=== PATIENT | female | born 1995 | race Caucasian/White ===

== ENCOUNTER 2020-08-26 22:31 | Emergency (ER) | payer BC ==
[~2020-08-26] VITALS: Ht 167.6 cm; Wt 72.5 kg
[2020-08-26] MEDS ORDERED: PROZAC20 M1 PO (22:47)
[2020-08-26 23:14] LABS: HEMOGLOBIN 12.1 g/dl (12.0-16.0); IMMATURE GRANULOCYTES 0.2 % (0.0-5.0); MEAN CELL VOLUME 92.3 fL CALC (80.0-100.0); MEAN CORPUSCULAR HGB 30.2 pG CALC (26.0-32.0); MEAN CORPUSCULAR HGB CONC 32.7 g/dL CAL (32.0-36.0); NEUT# 5.5 thou/uL (2.00-7.15); RED BLOOD COUNT 4.01 mill/uL (4.20-5.60); RED CELL DISTRI WIDTH 12.1 % (11.5-15.5)
[2020-08-27 00:15] VITALS: BP 118/73
== END 2020-08-27 00:18 | disposition home or self-care (01) | DRG 605 ==
LOC: ED 22:31
PROVIDERS: Family Medicine
PROC: 0HQFXZZ Repair Right Hand Skin, External Approach (ICD-10-PCS; principal; 2020-08-26)
DX: S61.411A Laceration without foreign body of right hand, initial encounter (principal); J20.8 Acute bronchitis due to other specified organisms; W26.9XXA Contact with unspecified sharp object(s), initial encounter; Y93.E9 Activity, other interior property and clothing maintenance; Y92.009 Unspecified place in unspecified non-institutional (private) residence as the place of occurrence of the external cause; Z20.822 Contact with and (suspected) exposure to COVID-19